=== PATIENT | male | born 1970 | race Two or more races ===

== ENCOUNTER 2025-04-29 21:54 | Inpatient (IN) | payer MEDICAID, OTHER ==
[~2025-04-29] VITALS: Ht 165.1 cm; Wt 63.0 kg
--- NOTE | 2025-04-29 22:04 | ECG ---
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
[2025-04-29 22:28] VITALS: PULSE 80; RESP 24; O2SAT 96
[2025-04-29 23:10] LABS: Hematocrit 43.7 % (41.0-53.0); Hemoglobin 15.2 g/dL (13.5-17.5); Mean Corpuscular Hemoglobin 31.6 pg (28.0-32.0); Mean Corpuscular Volume 90.8 fL (80.0-100.0)
--- NOTE | 2025-04-29 23:10 | ED.PDOC ---
HPI Comments 55-year-old male who came to ER for shortness of breath. Patient denies any medical problems. States earlier today he started having chest pains and shortness of breath after having dinner. Thought he was having an allergic reaction so he self-medicated Benadryl which offered no relief. Patient was getting breathing treatments by paramedics while on the way to the emergency room. Saturating 96% on room air Chief Complaint: Shortness of Breath Time Seen by MD: 23:14 Reviewed Notes: Nurses Notes Allergies: Coded Allergies: NO KNOWN ALLERGIES (Unverified , 04/29/25) Information Source: Patient Mode of Arrival: EMS Severity: Moderate Past Medical History PAST MEDICAL HISTORY: Denies Surgical History: Denies all surgeries Family History Family History: Reviewed,noncontributory to illness Social History Smoker: Non-Smoker Alcohol: Denies ETOH Use Drugs: Denies Drug Use Lives In: Home Constitutional: denies: chills, diaphoresis, fatigue, fever, malaise, sweats, weakness, others EENTM: denies: blurred vision, double vision, ear bleeding, ear discharge, ear drainage, ear pain, ear ringing, eye pain, eye redness, hearing loss, mouth pain, mouth swelling, nasal discharge, nose bleeding, nose congestion, nose pain, photophobia, tearing, throat pain, throat swelling, voice changes, others Respiratory: reports: SOB at rest, shortness of breath; denies: cough, hemoptysis, orthopnea, SOB with excertion, stridor, wheezing, others Cardiovascular: reports: chest pain; denies: dizzy spells, diaphoresis, Dyspnea on exertion, edema, irregular heart beat, left arm pain, lightheadedness, palpitations, PND, syncope, others Gastrointestinal: denies: abdomen distended, abdominal pain, blood streaked bowels, constipated, diarrhea, dysphagia, difficulty swallowing, hematemesis, melena, nausea, poor appetite, poor fluid intake, rectal bleeding, rectal pain, vomiting, others Genitourinary: denies: burning, dysuria, flank pain, frequency, hematuria, incontinence, penile discharge, penile sore, pain, testicle pain, testicle swelling, urgency, others Neurological: denies: dizziness, fainting, headache, left sided numbness, left sided weakness, numbness, paresthesia, pre-existing deficit, right sided nu mbness, right sided weakness, seizure, speech problems, tingling, tremors, weakness, others Musculoskeletal: denies: back pain, gout, joint pain, joint swelling, muscle pain, muscle stiffness, neck pain, others Integumetry: denies: bruises, change in color, change in hair/nails, dryness, laceration, lesions, lumps, rash, wounds, others Allergic/Immunocompromised: denies: Difficulty Healing, Frequent Infections, Hives, Itching, others Hematologic/Lymphatic: denies: anemia, blood clots, easy bleeding, easy bruising, swollen glands, others Endocrine: denies: excessive hunger, excessive sweating, excessive thirst, excessive urination, flushing, intolerance to cold, intolerance to heat, unexplained weight gain, unexplained weight loss, others Psychiatric: denies: anxiety, bipolar disorder, depression, hopeless, panic disorder, schizophrenia, sleepless, suicidal, others Physical Exam General Appearance: No Apparent Distress, Normal HEENT: Normal ENT Inspection, Pharynx Normal, TMs Normal Neck: Full Range of Motion, Non-Tender, Normal, Normal Inspection Respiratory: Chest Non-Tender, Lungs Clear, No Accessory Muscle Use, No Respiratory Distress, Normal Breath Sounds Cardiovascular: No Edema, No JVD, No Murmur, No Gallop, Normal Peripheral Pulses, Regular Rate/Rhythm Breast Exam: Deferred Gastrointestinal: No Organomegaly, Non Tender, No Pulsatile Mass, Normal Bowel Sounds, Soft Genitalia: Deferred Pelvic: Deferred Rectal: Deferred Extremities: No calf tenderness, Normal capillary refill, Normal inspection, Normal range of motion, Non-tender, No pedal edema Musculoskeletal : Apperance: Normal Neurologic: Alert, artist woodblock II-XII nml as Tested, No Motor Deficits, Normal Affect, Normal Mood, No Sensory Deficits Cerebellar Function: Normal Reflexes: Normal Skin: Dry, Normal Color, Warm Lymphatic: No Adenopathy EKG EKG : Pulse Rate (adult): 82 Cardiac Rhythm: NSR Was a procedure done? Was a procedure done?: No CP Differential Dx Differential Diagnosis: Angina, Anxiety / Panic Attack Differential Diagnosis: Angina, Chest Wall Pain, Costochondritis, Esophageal reflux/spasm, Gastritis, Myocardial Infarction X-Ray, Labs, Meds, VS Vital Signs Date Time Temp Pulse Resp B/P (MAP) Pulse Ox O2 Delivery O2 Flow Rate FiO2 04/30/25 01:50 78 20 101/55 (70) 95 04/30/25 00:00 80 20 102/55 (71) 96 04/29/25 23:37 16 95 Nasal Cannula* 2 28 04/29/25 23:15 82 04/29/25 22:28 80 24 96 Nasal Cannula* 2 28 04/29/25 22:26 97.9 80 24 108/63 (78) 96 97.9 04/29/25 22:04 98.9 78 24 111/65 96 98.9 04/29/25 21:57 82 Lab Test 04/29/25 23:12 04/29/25 23:07 04/29/25 22:00 Range/Units Blood Gas Specimen Type Venous Blood Gas Sample Site Vbg - n/a Blood Gas Patient Temperature 37.0 Arterial Blood Date Drawn [id number] Declan Test N/a Venous Blood pH 7.395 7.320-7.430 Venous Blood pCO2 at Patient Temp 34.8 L 38.0-54.0 mmHg Venous Blood pO2 at Patient Temp 65.8 H 23.0-48.0 mmHg Venous Blood HCO3 20.8 L 22.0-29.0 mmol/L Venous Blood Base Excess -3.3 L -2.0-3.0 mmol/L Blood Gas Liter Flow 2.00 Blood Gas Modality Nasal cannula FiO2 % 28.0 Troponin I High Sensitivity < 3 L < 3 L </=54 ng/L White Blood Count 10.1 4.4-10.8 10^3/uL Red Blood Count 4.81 4.5-5.90 10^6/uL Hemoglobin 15.2 13.5-17.5 g/dL Hematocrit 43.7 41.0-53.0 % Mean Corpuscular Volume 90.8 80.0-100.0 fL Mean Corpuscular Hemoglobin 31.6 28.0-32.0 pg Mean Corpuscular Hemoglobin Concent 34.8 32.0-36.0 g/dL Red Cell Distribution Width 13.7 11.8-14.3 % Platelet Count 317 140-450 10^3/uL Mean Platelet Volume 8.8 6.9-10.8 fL Neutrophils (%) (Auto) 37.0-80.0 % Lymphocytes (%) (Auto) 10.0-50.0 % Monocytes (%) (Auto) 0.0-12.0 % Basophils (%) (Auto) 0.0-2.0 % Neutrophils # (Auto) 1.6-8.6 10 ^3/uL Lymphocytes # (Auto) 0.4-5.4 10 ^3/uL Monocytes # (Auto) 0-1.3 10 ^3/uL Differential Total Cells Counted Pending Neutrophils % (Manual) Pending Band Neutrophils % (Manual) Pending Lymphocytes % (Manual) Pending Monocytes % (Manual) Pending Eosinophils % (Manual) Pending Basophils % (Manual) Pending Metamyelocytes % (manual) Pending Myelocytes % (Manual) Pending Promyelocytes % (Manual) Pending Blast Cells % (Manual) Pending Reactive Lymphocytes Pending Platelet Estimate Pending Prothrombin Time 9.8 9.3-11.8 sec Prothrombin Time INR 0.92 0.9-1.15 Activated Partial Thromboplast Time 26.4 24.5-34.5 SEC Sodium Level 143 136-145 mmol/L Potassium Level 3.5 3.5-5.1 mmol/L Chloride Level 109 H 98-107 mmol/L Carbon Dioxide Level 21 20-31 mmol/L Anion Gap 13 5-15 Blood Urea Nitrogen 19 9-23 mg/dL Creatinine 0.83 0.700-1.30 mg/dL Glomerular Filtration Rate Calc 103 >90 mL/min BUN/Creatinine Ratio 22.9 H 10.0-20.0 Serum Glucose 86 74-106 mg/dL Calcium Level 9.2 8.7-10.4 mg/dL Total Bilirubin 0.2 0.2-1.0 mg/dL Aspartate Amino Transferase (AST) 24 13-40 U/L Alanine Aminotransferase (ALT) 27 7-40 U/L Alkaline Phosphatase 70 46-116 U/L B-Type Natriuretic Peptide 19.04 0-100 pg/mL Total Protein 6.7 5.7-8.2 g/dL Albumin 3.9 3.2-4.8 g/dL Current Medications Medications (Trade) Dose Ordered Sig/Tosha Route Start Time Stop Time Status Last Admin Prednisone 40 mg ONCE ONCE PO 04/29/25 23:00 04/29/25 23:02 DC 04/29/25 23:22 Albuterol (Ventolin Medneb) 5 mg ONCE ONCE NEB 04/29/25 23:00 04/29/25 23:02 DC 04/29/25 23:37 Ipratropium [place] (Atrovent Medneb) 0.5 mg ONCE ONCE NEB 04/29/25 23:00 04/29/25 23:02 DC 04/29/25 23:37 Time of 1ST Reevaluation: 23:12 Reevaluation 1ST: Unchanged Patient Education/Counseling: Diagnosis, Treatment Family Education/Counseling: No Family Present SEPSIS Sepsis Screen Date sepsis recognized/suspect: Apr 29, 2025 Time Sepsis recognized/suspect: 2232 Recent Procedure: No On Antibiotic Therapy: No Respiratory Rate >20: Yes Heart Rate >90: No Temp<36 C (96.8 F) or >38.3 C: No SBP <90 or MAP <65 mmHG: No New Acute Mental Status Change: No Is the patient on CPAP, BIPAP,: No Physician Orders Complete Blood Count (04/29/25 22:59) Chest Portable (04/29/25 22:59) Venous Blood Gas (04/29/25 22:59) Manual Differential (04/29/25 22:00) Vital Signs Date Time Temp Pulse Resp B/P (MAP) Pulse Ox O2 Delivery O2 Flow Rate FiO2 04/30/25 01:50 78 20 101/55 (70) 95 04/30/25 00:00 80 20 102/55 (71) 96 04/29/25 23:37 16 95 Nasal Cannula* 2 28 04/29/25 23:15 82 04/29/25 22:28 80 24 96 Nasal Cannula* 2 28 04/29/25 22:26 97.9 80 24 108/63 (78) 96 97.9 04/29/25 22:04 98.9 78 24 111/65 96 98.9 04/29/25 21:57 82 Laboratory Tests Test 04/29/25 22:00 White Blood Count 10.1 10^3/uL (4.4-10.8) Medications Medications Dose Ordered Sig/Tosha Route Start Time Stop Time Status Last Admin Dose Admin Albuterol 5 mg ONCE ONCE NEB 04/29/25 23:00 04/29/25 23:02 DC 04/29/25 23:37 Ipratropium [place] 0.5 mg ONCE ONCE NEB 04/29/25 23:00 04/29/25 23:02 DC 04/29/25 23:37 Prednisone 40 mg ONCE ONCE PO 04/29/25 23:00 04/29/25 23:02 DC 04/29/25 23:22 Departure 1 Departure Time of Disposition: 02:20 Impression: Primary Impression: COPD exacerbation Additional Impression: Respiratory failure with hypoxia Disposition: ADMITTED INPATIENT Admit to: Med Surg Condition: Guarded Discharged With: Self Comments 55 year old male with severe SOB, hypoxia. CXR and cardiac labs ok. given breathing treatments and still has SOB on reeval. will need admit for supportive care and further workup Critical Care Note Critical Care Time?: No Stability Stability form required: No Heart Score Heart Score: Heart Score Response (Comments) Value History Slightly Suspicious 0 EKG Normal 0 Age <45 0 Risk Factors No known risk factors 0 Troponin Normal limit 0 Total 0 I personally scribed for AYANA TILLEY MD ([email or web address]) on 04/29/25 at 23:10. Electronically submitted by Sebastián Torrez ([employer]). I personally scribed for AYANA TILLEY MD ([email or web address]) on 04/29/25 at 23:15. Electronically submitted by Sebastián Torrez ([email or web address]). AYANA TILLEY MD Apr 29, 2025 23:10
[2025-04-29] MEDS: predniSONE 20 MG TAB PO ONE (23:22)
[2025-04-29 23:25] LABS: Alanine Aminotransferase 27 U/L (7-40); Albumin 3.9 g/dL (3.2-4.8); Alkaline Phosphatase 70 U/L (46-116); Anion Gap 13 (5-15); BUN/Creatinine Ratio 22.9 (10.0-20.0); Blood Urea Nitrogen 19 mg/dL (9-23); Calcium 9.2 mg/dL (8.7-10.4); Carbon Dioxide 21 mmol/L (20-31); Glucose 86 mg/dL (74-106); Potassium 3.5 mmol/L (3.5-5.1); Sodium 143 mmol/L (136-145); Total Protein 6.7 g/dL (5.7-8.2)
[2025-04-29 23:28] LABS: Bilirubin, Total 0.2 mg/dL (0.2-1.0); Chloride 109 mmol/L (98-107)
[2025-04-29 23:35] LABS: INR 0.92 (0.9-1.15); Partial Thromboplastin Time 26.4 SEC (24.5-34.5); Prothrombin Time 9.8 sec (9.3-11.8)
[2025-04-29] MEDS: IPRATROPIUM BROM 0.5 MG/2.5ML INH SOL NEB ONE (23:37)
[2025-04-29] MEDS: ALBUTEROL SULF 2.5 MG/0.5ML(0.5%) NEB SOLN NEB ONE (23:37)
[2025-04-30] VITALS (7 sets, daily range): BP systolic 108–123; BP diastolic 45–72; PULSE 64–77; RESP 16–18; TEMP 98.3–98.8; O2SAT 95–98
--- NOTE | 2025-04-30 00:33 | DVH ---
CHEST RADIOGRAPH Indication: SOB Technique: Single frontal view of the chest was obtained COMPARISON: None FINDINGS: Lungs and pleural spaces are clear. Cardiac silhouette and vikki are within normal limits. Bones and soft tissues demonstrate no significant abnormality. IMPRESSION: No acute disease.
[2025-04-30 02:19] LABS: Total Cells Counted 100.0 (100)
[2025-04-30] MEDS ORDERED: ACETAMINOPHEN 325 MG TAB PO PRN (02:30)
[2025-04-30] MEDS ORDERED: DOCUSATE SOD 100 MG CAP PO PRN (02:30)
[2025-04-30] MEDS ORDERED: ONDANSETRON HCL 4 MG/2 ML VIAL IV PRN (02:30)
[2025-04-30] MEDS ORDERED: NITROGLYCERIN 0.4 MG SL TAB SL PRN (02:45)
[2025-04-30] MEDS ORDERED: MORPHINE SULFATE INJ 2 MG/ml SYRG IV PRN (02:45)
--- NOTE | 2025-04-30 02:47 | DVHHP2 ---
History of Present Illness Reason for Visit: Acute respiratory distress History of Present Illness The patient is a 55-year-old male who denies past medical history presented to [facility] ED with complaint of shortness of breaths. Patient reports that he has been experiencing difficulty breathing, lethargic, increased work of breathing, associated with generalized weakness, chest pain, getting worse that prompted this visit. Patient was seen and evaluated in the ED, laboratory data shows WBC 10.1, platelets 317, sodium 143, potassium 3.5, BUN 19, creatinine 0.83, GFR 103, glucose 86, calcium 9.2, troponin < 3, BNP 19.04, chest x-ray show no acute disease. Patient was given breathing treatment, please see medication orders section in the computer. On my assessment, at bedside, patient denied chest pain, no headache, dizziness, diaphoresis, currently on oxygen, no diarrhea, nausea, vomiting, fever, no chills. Patient was admitted for further evaluation and medical management. Past Medical History Denies past medical history Past Surgical History Denies all surgeries Family History Reviewed, noncontributory to the management of this case. Past Social History The patient lives at home, denies smoking, alcohol or illicit drugs abuse. Review of Systems Constitutional: Yes: Weakness, Other (Lethargic); No: Fever, Chills, Sweats, Malaise Eyes: No: Pain, Vision change, Conjunctivae inflammation, Eyelid inflammation, Other, Redness ENT: No: Ear pain, Ear discharge, Nose pain, Nose discharge, Nose congestion, Mouth pain, Mouth swelling, Throat pain, Throat swelling, Other Respiratory: Shortness of breath, Other (SOB at rest); No: Cough, Dry, SOB with excertion, Wheezing, Hemoptysis, Pleuritic Pain, Sputum, Wheezing Cardiovascular: Chest Pain; No: Palpitations, Orthopnea, Paroxysmal Noc. Dyspnea, Edema, Lt Headedness, Other Gastrointestinal: No: Nausea, Vomiting, Abdominal Pain, Diarrhea, Constipation, Melena, Hematochezia, Other Genitourinary: No Dysuria, No Frequency, No Incontinence, No Hematuria, No Retention, No Other Musculoskeletal: No: other, neck pain, shoulder pain, arm pain, back pain, hand pain, leg pain, foot pain Skin: No: Rash, Lesions, Jaundice, Bruising, Other Neurological: No: Weakness, Numbness, Incoordination, Change in speech, Confusion, Seizures, Other Allergies: Coded Allergies: NO KNOWN ALLERGIES (Unverified , 04/29/25) Medications Current Medications Medications Dose Ordered Sig/Tosha Route Start Time Stop Time Status Last Admin Dose Admin Methylprednisolone Sodium Succinate 40 mg BID IV 04/30/25 10:00 Famotidine 20 mg DAILY IV 04/30/25 10:00 Sodium Chloride 10 ml Q8HR IV 04/30/25 06:00 Acetaminophen/ Hydrocodone Bitart 1 tab Q4HP PRN PO 04/30/25 02:30 Ondansetron HCl 4 mg Q4HP PRN IV 04/30/25 02:30 Docusate Sodium 100 mg BIDPRN PRN PO 04/30/25 02:30 Acetaminophen 650 mg Q6HP PRN PO 04/30/25 02:30 Exam Vital Signs Vital Signs Date Time Temp Pulse Resp B/P (MAP) Pulse Ox O2 Delivery O2 Flow Rate FiO2 04/30/25 01:50 78 20 101/55 (70) 95 04/29/25 23:37 Nasal Cannula* 2 28 04/29/25 22:26 97.9 97.9 General Appearance: Alert, Oriented X3, Cooperative, No acute distress HEENT: Atraumatic, PERRLA, EOMI, Mucous membr. moist/pink Respiratory: Normal air movement Cardiovascular: Regular rate, Normal S1, Normal S2, No murmurs Abdominal: Normal bowel sounds, Soft, No tenderness, No hepatospenomegaly, No masses Extremities: No clubbing, No cyanosis, No edema, Normal pulses, No tenderness/swelling Skin: No rashes, No significant lesion Neuro: Normal speech, Normal tone, Sensation intact, Cranial nerves 3-12 NL, Reflexes 2+, Other (Generalized weakness) Psych/Mental Status: Mental status NL, Mood NL Labs/Xrays Labs Test 04/29/25 23:12 04/29/25 23:07 04/29/25 22:00 Range/Units Blood Gas Specimen Type Venous Blood Gas Sample Site Vbg - n/a Blood Gas Patient Temperature 37.0 Arterial Blood Date Drawn [id number] Declan Test N/a Venous Blood pH 7.395 7.320-7.430 Venous Blood pCO2 at Patient Temp 34.8 L 38.0-54.0 mmHg Venous Blood pO2 at Patient Temp 65.8 H 23.0-48.0 mmHg Venous Blood HCO3 20.8 L 22.0-29.0 mmol/L Venous Blood Base Excess -3.3 L -2.0-3.0 mmol/L Blood Gas Liter Flow 2.00 Blood Gas Modality Nasal cannula FiO2 % 28.0 Troponin I High Sensitivity < 3 L </=54 ng/L White Blood Count 10.1 4.4-10.8 10^3/uL Red Blood Count 4.81 4.5-5.90 10^6/uL Hemoglobin 15.2 13.5-17.5 g/dL Hematocrit 43.7 41.0-53.0 % Mean Corpuscular Volume 90.8 80.0-100.0 fL Mean Corpuscular Hemoglobin 31.6 28.0-32.0 pg Mean Corpuscular Hemoglobin Concent 34.8 32.0-36.0 g/dL Red Cell Distribution Width 13.7 11.8-14.3 % Platelet Count 317 140-450 10^3/uL Mean Platelet Volume 8.8 6.9-10.8 fL Neutrophils (%) (Auto) 37.0-80.0 % Lymphocytes (%) (Auto) 10.0-50.0 % Monocytes (%) (Auto) 0.0-12.0 % Basophils (%) (Auto) 0.0-2.0 % Neutrophils # (Auto) 1.6-8.6 10 ^3/uL Lymphocytes # (Auto) 0.4-5.4 10 ^3/uL Monocytes # (Auto) 0-1.3 10 ^3/uL Differential Total Cells Counted 100.0 100 Neutrophils % (Manual) 40 37.0-80.0 Band Neutrophils % (Manual) 0 Lymphocytes % (Manual) 57 H 10.0-50.0 Monocytes % (Manual) 3 0-12 Eosinophils % (Manual) 0 0-7 Basophils % (Manual) 0 0.0-2.0 Metamyelocytes % (manual) 0 Myelocytes % (Manual) 0 Promyelocytes % (Manual) 0 Blast Cells % (Manual) 0 Reactive Lymphocytes 0 Platelet Estimate Adequate Prothrombin Time 9.8 9.3-11.8 sec Prothrombin Time INR 0.92 0.9-1.15 Activated Partial Thromboplast Time 26.4 24.5-34.5 SEC Sodium Level 143 136-145 mmol/L Potassium Level 3.5 3.5-5.1 mmol/L Chloride Level 109 H 98-107 mmol/L Carbon Dioxide Level 21 20-31 mmol/L Anion Gap 13 5-15 Blood Urea Nitrogen 19 9-23 mg/dL Creatinine 0.83 0.700-1.30 mg/dL Glomerular Filtration Rate Calc 103 >90 mL/min BUN/Creatinine Ratio 22.9 H 10.0-20.0 Serum Glucose 86 74-106 mg/dL Calcium Level 9.2 8.7-10.4 mg/dL Total Bilirubin 0.2 0.2-1.0 mg/dL Aspartate Amino Transferase (AST) 24 13-40 U/L Alanine Aminotransferase (ALT) 27 7-40 U/L Alkaline Phosphatase 70 46-116 U/L B-Type Natriuretic Peptide 19.04 0-100 pg/mL Total Protein 6.7 5.7-8.2 g/dL Albumin 3.9 3.2-4.8 g/dL PATIENT: JOSE ZAMUDIO ACCT: [id number] UNIT: [id number] : 1970 LOC: ER ROOM / BED: / AGE / SEX: 55 / M ADM STATUS: REG ER SERVICE 58 ORDERING PHYSICIAN: AYANA TILLEY MD PROCEDURE(s): CXRP - CHEST PORTABLE REASON: SOB ORDER NUMBER(s): [id number], ACCESSION NUMBER(s): [id number] CHEST RADIOGRAPH Indication: SOB Technique: Single frontal view of the chest was obtained COMPARISON: None FINDINGS: Lungs and pleural spaces are clear. Cardiac silhouette and vikki are within normal limits. Bones and soft tissues demonstrate no significant abnormality. IMPRESSION: No acute disease. SEPSIS Sepsis Screen Date sepsis recognized/suspect: Apr 29, 2025 Time Sepsis recognized/suspect: 22:33 Recent Procedure: No On Antibiotic Therapy: No Respiratory Rate >20: Yes Heart Rate >90: No Temp<36 C (96.8 F) or >38.3 C: No SBP <90 or MAP <65 mmHG: No New Acute Mental Status Change: No Is the patient on CPAP, BIPAP,: No Physician Orders Chest Portable (04/29/25 22:59) Venous Blood Gas (04/29/25 22:59) Complete Blood Count (04/30/25 04:00) Comprehensive Metabolic Panel (04/30/25 04:00) Methylprednisolone Sod Succ (Solu Medrol (04/30/25 10:00) Famotidine Injection (Pepcid Injection) (04/30/25 10:00) Allergies (04/30/25 02:27) Code Status (04/30/25 02:27) Sodium Chloride Lock (Saline Lock Ns) (04/30/25 06:00) Oxygen Per Hour (04/30/25 02:27) Hydrocodone-Acet 5/325mg Tab ([place] 5/32 (04/30/25 02:30) Ondansetron Hcl (Zofran) (04/30/25 02:30) Docusate Sodium Capsule (Colace Capsule) (04/30/25 02:30) Complete Blood Count (05/01/25 04:00) Comprehensive Metabolic Panel (05/01/25 04:00) Cardiac Diet-2gna,Lofat,Lochol (04/30/25 Breakfast) Condition: Serious (04/30/25 02:27) Acetaminophen Tablet (Tylenol Tablet) (04/30/25 02:30) Bedrest With Bathroom Privileg (04/30/25 02:27) Sequential Compression Device (04/30/25 ) Admit (04/30/25 02:45) Nitroglycerin Sublingual (Ntrostat Subli (04/30/25 02:45) Morphine Sulfate Injection (04/30/25 02:45) Stat Ekg For Chest Pain (04/30/25 02:45) Notify Md Of Changes From Base (04/30/25 02:45) Sales Representative Jewelry For 24 Hours (04/30/25 02:45) Emergency Dysrhythmia Protocol (04/30/25 02:45) Rhythm Strips Once Every Shift (04/30/25 02:45) Oxygen By Nasal Cannula (04/30/25 02:45) Vital Signs Date Time Temp Pulse Resp B/P (MAP) Pulse Ox O2 Delivery O2 Flow Rate FiO2 04/30/25 01:50 78 20 101/55 (70) 95 04/30/25 00:00 80 20 102/55 (71) 96 04/29/25 23:37 16 95 Nasal Cannula* 2 28 04/29/25 23:15 82 04/29/25 22:28 80 24 96 Nasal Cannula* 2 28 04/29/25 22:26 97.9 80 24 108/63 (78) 96 97.9 04/29/25 22:04 98.9 78 24 111/65 96 98.9 04/29/25 21:57 82 Laboratory Tests Test 04/29/25 22:00 White Blood Count 10.1 10^3/uL (4.4-10.8) Medications Medications Dose Ordered Sig/Tosha Route Start Time Stop Time Status Last Admin Dose Admin Albuterol 5 mg ONCE ONCE NEB 04/29/25 23:00 04/29/25 23:02 DC 04/29/25 23:37 5 MG Ipratropium [place] 0.5 mg ONCE ONCE NEB 04/29/25 23:00 04/29/25 23:02 DC 04/29/25 23:37 0.5 MG Prednisone 40 mg ONCE ONCE PO 04/29/25 23:00 04/29/25 23:02 DC 04/29/25 23:22 40 MG Assessment/Plan Assessment/Plan Acute respiratory distress COPD with acute exacerbation Acute respiratory failure with hypoxia Generalized weakness Plan 1. Admit to telemetry unit 2. Breathing treatment 3. Pain control management 4. Management of fluids and electrolytes 5. Consultation for hospitalist 6. Diagnostic tests chest x-ray 7. DVT prophylaxis on SCDs 8. Repeat labs CBC, CMP in a.m. 9. Continue with current medical management 10. Treatment plan discussed with patient and RN. Patient verbalized understanding. Plan discussed with: Patient, Spouse ( at bedside), Other (RN) My Orders Orders - GONZALO JAIMES DNP Procedure Category Date Status Time Complete Blood Count LAB 04/30/25 Logged 04:00 Comprehensive LAB 04/30/25 Logged Metabolic Panel 04:00 Methylprednisolone PHA 04/30/25 In Process Sod Succ (Solu Medrol 10:00 Famotidine Injection PHA 04/30/25 In Process (Pepcid Injection) 10:00 Allergies DWAIN 04/30/25 In Process 02:27 Code Status CODE 04/30/25 Transmitted 02:27 Sodium Chloride Lock PHA 04/30/25 In Process (Saline Lock Ns) 06:00 Oxygen Per Hour RT 04/30/25 Transmitted 02:27 Hydrocodone-Acet PHA 04/30/25 In Process 5/325mg Tab ([place] 02:30 Ondansetron Hcl PHA 04/30/25 In Process (Zofran) 02:30 Docusate Sodium [facility] 04/30/25 In Process Capsule (Colace 02:30 Complete Blood Count LAB 05/01/25 Verified 04:00 Comprehensive LAB 05/01/25 Verified Metabolic Panel 04:00 Cardiac DIET 04/30/25 Transmitted Diet-2gna,Lofat,Lochol Breakfast Condition: Serious [facility] 04/30/25 In Process 02:27 Acetaminophen Tablet [facility] 04/30/25 In Process (Tylenol Tablet) 02:30 Bedrest With Bathroom [facility] 04/30/25 In Process Privileg 02:27 Sequential [facility] 04/30/25 In Process Compression Device Admit ADMIT 04/30/25 Verified 02:45 Nitroglycerin [facility] 04/30/25 Verified Sublingual (Ntrostat 02:45 Morphine Sulfate [facility] 04/30/25 Verified Injection 02:45 Stat Ekg For Chest [facility] 04/30/25 Verified Pain 02:45 Notify Md Of Changes [facility] 04/30/25 Verified From Base 02:45 Sales Representative Jewelry For [facility] 04/30/25 Verified 24 Hours 02:45 Emergency Dysrhythmia [facility] 04/30/25 Verified Protocol 02:45 Rhythm Strips Once [facility] 04/30/25 Verified Every Shift 02:45 Oxygen By Nasal 04/30/25 Verified Cannula 02:45 Problem List: (1) Acute respiratory distress (2) COPD with acute exacerbation (3) Respiratory failure with hypoxia (4) Generalized weakness Date of Service: Apr 30, 2025 Billing Provider: GONZALO JAIMES DNP Common Visit Codes: [id number] INP/OBS CARE (HIGH) GONZALO JAIMES DNP Apr 30, 2025 02:47
[2025-04-30] MEDS: SODIUM CHLOR 0.9% PF (SALINE LOCK) 10ML VIAL/SYR IV SCH (06:14)
[2025-04-30] MEDS: methylPREDNISolone SOD SUCC 40 MG/ML VL IV SCH (09:41)
[2025-04-30] MEDS: FAMOTIDINE (10MG/ML) 2ML VL IV SCH (09:41)
[2025-04-30 10:00] LABS: Hematocrit 45.9 % (41.0-53.0); Hemoglobin 15.7 g/dL (13.5-17.5); Mean Corpuscular Hemoglobin 31.4 pg (28.0-32.0); Mean Corpuscular Volume 91.8 fL (80.0-100.0); Nucleated Red Blood Cells % 0.1 %
[2025-04-30 10:13] LABS: Alanine Aminotransferase 27 U/L (7-40); Albumin 4.1 g/dL (3.2-4.8); Alkaline Phosphatase 67 U/L (46-116); Anion Gap 9 (5-15); BUN/Creatinine Ratio 21.6 (10.0-20.0); Bilirubin, Total 0.3 mg/dL (0.2-1.0); Blood Urea Nitrogen 16 mg/dL (9-23); Calcium 9.2 mg/dL (8.7-10.4); Carbon Dioxide 22 mmol/L (20-31); Potassium 4.0 mmol/L (3.5-5.1); Sodium 142 mmol/L (136-145); Total Protein 7.0 g/dL (5.7-8.2)
[2025-04-30 10:17] LABS: Chloride 111 mmol/L (98-107); Glucose 110 mg/dL (74-106)
[2025-04-30 16:50] LABS: COVID19 ANTIGEN SOFIA FIA NEGATIVE (NEGATIVE)
--- NOTE | 2025-04-30 18:53 | DVHPNRES ---
Progress Note Date Seen: Apr 30, 2025 Resident Creating Document: CARO BROWER RESIDENT Medical Necessity Reason Pt with a Central, PICC or Fol: No Subjective Review of Systems Berlin Juarez 55-year-old male with no significant past medical history who presented to the ED with the complaint of shortness of breath. The patient mentioned he started having shortness of breath yesterday which kept getting progressively worse, when he had significant difficulty breathing and was gasping for air. She also experienced tightness in the chest and generalized weakness along with it. The patient mentions he has been having increased shortness of breath on lying down and has to sometimes sit up from lying down position to get some air. On evaluation today, patient mentions he is having sharp pain radiating from the back to the front of the chest, rated as 8/10 in intensity, exacerbated with exertion. He denies any recent fever, chills or sick contacts. Past medical history: Denies Past surgical history: Denies Social & Personal history: Lives at home with family Smokin pack-year smoking history Alcohol: Occasional alcohol consumption Drugs: Denies Allergies: No known allergies Patient seen and examined at bedside. Patient is alert and oriented to time, place person and responding to all questions. Eyes: No Pain, No Vision change, No Conjunctivae inflammation, No Eyelid inflammation, No Redness ENT: No Ear pain, No Ear discharge, No Nose pain, No Nose discharge, No Nose congestion, No Mouth pain, No Mouth swelling, No Throat pain, No Throat swelling Cardiovascular: Chest Pain, No Palpitations, No Orthopnea, No Paroxysmal No Dyspnea, No Edema, No Lt Headedness Respiratory: No Cough, No Dry, No Shortness of breath, No SOB with exertion, No Wheezing, No Hemoptysis, No Pleuritic Pain, No Sputum Gastrointestinal: No Nausea, No Vomiting, No Abdominal Pain, No Diarrhea, No Constipation, No Melena, No Hematochezia Genitourinary: No Dysuria, No Frequency, No Incontinence, No Hematuria, No Retention Objective vital signs Vital Sign Date Time Temp Pulse Resp B/P (MAP) Pulse Ox O2 Delivery O2 Flow Rate FiO2 04/30/25 17:19 98.3 69 16 118/71 (87) 97 98.3 04/30/25 08:00 Nasal Cannula* 2 28 Total Intake and Output 04/29/25 04/29/2504/30/25 15:00 23:00 07:00 Intake Total 220 ml Output Total 520 ml Balance -300 ml medications Current Medications Medications Dose Ordered Sig/Tosha Route Start Time Stop Time Status Last Admin Dose Admin Methylprednisolone Sodium Succinate 40 mg BID IV 04/30/25 10:00 04/30/25 09:41 40 MG Famotidine 20 mg DAILY IV 04/30/25 10:00 04/30/25 09:41 20 MG Sodium Chloride 10 ml Q8HR IV 04/30/25 06:00 04/30/25 14:00 10 ML Acetaminophen/ Hydrocodone Bitart 1 tab Q4HP PRN PO 04/30/25 02:30 Ondansetron HCl 4 mg Q4HP PRN IV 04/30/25 02:30 Docusate Sodium 100 mg BIDPRN PRN PO 04/30/25 02:30 Acetaminophen 650 mg Q6HP PRN PO 04/30/25 02:30 Nitroglycerin 0.4 mg Q5MINP PRN SL 04/30/25 02:45 Morphine Sulfate 2 mg Q30M PRN IV 04/30/25 02:45 Examination General Appearance: Cooperative. Well developed. Well nourished. NAD Head Exam: Normal inspection Neck Exam: Normal inspection. Non-tender. Normal alignment Pulmonary/Respiratory: Chest non-tender. Clear bilateral breath sounds, no crackles, no wheezing. Cardiovascular/Chest: Regular rate and rhythm. No murmurs. No JVD. Peripheral Pulses: 2+ Radial (R). 2+ Radial (L). 2+ Pedal (R). 2+ Pedal (L) Abdominal Exam: Normal bowel sounds. Soft. normal abdomen, no visible veins, Nontender. No hepatospenomegaly. No masses Ankle Exam: Negative ankle edema Lower extremities: Negative lower extremity edema Neuro/Mental Status: A&O x4. Coherent. Thoughts/Psych: Normal thought pattern. Appropriate mood and affect. Good judgement and insight Skin Exam: Normal inspection. Normal color. Warm. Dry laboratory and microbiology Laboratory Tests 04/30/25 09:39 Test 04/30/25 09:39 Range/Units Serum Glucose 110 H 74-106 mg/dL Labs and/or images reviewed: Labs reviewed by me, Image(s) reviewed by me Problem List/Assessment/Plan Problem List/Assessment/Plan # Acute respiratory failure, rule out COPD, on 2 L oxygen # acute chest pain,rule out PE # rule out aortic dissection # acute chest pain, rule out ACS # ruled out COPD exacerbation # rule out GERD - tropes x3 negative - BNP 19.04 - D-dimer 0.38 - EKG acute changes - COVID and influenza negative - echo ordered, pending - chest x-ray showed no acute changes - MRSA screen ordered, pending PUD prophylaxis: Famotidine 20 mg daily IV DVT prophylaxis: Goals of care: Full code, discussed for >23 minutes Plan discussed with patient Plan discussed with Dr. Torres Plan discussed with: Patient, Spouse, Son My Orders My Orders Orders - CARO BROWER Procedure Category Date Status Time Electrocardigram EKG 04/30/25 Logged 10:31 Date of Service: Apr 30, 2025 Billing Provider: CHRIS TORRES MD Common Visit Codes: [id number] INP/OBS CARE(HIGH) CARO BROWER RESIDENT Apr 30, 2025 18:53
[2025-04-30 19:26] LABS: Urine Protein, UAD Negative (Negative)
[2025-04-30 19:40] LABS: Amphetamine Screen, Urine Neg (NEGATIVE); Barbiturate Scree,Urine Neg (NEGATIVE); Benzodiazephine Screen, Urine Neg (NEGATIVE); Cannabinoid Screen, Urine Neg (NEGATIVE); Cocaine Screen, Urine Neg (NEGATIVE); Opiate Scree,Urine Neg (NEGATIVE); Phencyclidine Screen, Urine Neg (NEGATIVE)
[2025-04-30] MEDS: HYDROcodone-ACET 5/325MG TAB PO PRN (20:16)
[2025-04-30] MEDS: NICOTINE 21MG/24 HR TOPICAL PATCH TD SCH (20:17)
[2025-05-01] VITALS (8 sets, daily range): BP systolic 103–117; BP diastolic 61–84; PULSE 52–103; RESP 7–98; TEMP 96.9–97.9; O2SAT 94–98
--- NOTE | 2025-05-01 05:20 | DVH ---
CHEST RADIOGRAPH Indication: shortness of breath Technique: Single frontal view of the chest was obtained COMPARISON: XY CHEST PORTABLE on DOS: 04/30/25 FINDINGS: Lines and Tubes: None Lungs: Clear Pleura: No effusion. No pneumothorax. Cardiomediastinal contours: Unremarkable Bones: Unremarkable IMPRESSION: 1. No acute disease.
[2025-05-01 06:45] LABS: Hematocrit 46.5 % (41.0-53.0); Hemoglobin 15.8 g/dL (13.5-17.5); Mean Corpuscular Hemoglobin 31.0 pg (28.0-32.0); Mean Corpuscular Volume 91.4 fL (80.0-100.0); Nucleated Red Blood Cells % 0.0 %
[2025-05-01 07:05] LABS: Alanine Aminotransferase 24 U/L (7-40); Alkaline Phosphatase 60 U/L (46-116); Anion Gap 7 (5-15); BUN/Creatinine Ratio 23.5 (10.0-20.0); Blood Urea Nitrogen 16 mg/dL (9-23); Calcium 9.2 mg/dL (8.7-10.4); Carbon Dioxide 25 mmol/L (20-31); Chloride 107 mmol/L (98-107); Potassium 4.3 mmol/L (3.5-5.1); Sodium 139 mmol/L (136-145); Total Protein 6.7 g/dL (5.7-8.2)
[2025-05-01 07:06] LABS: Glucose 134 mg/dL (74-106)
[2025-05-01 07:07] LABS: Albumin 3.9 g/dL (3.2-4.8); Bilirubin, Total 0.4 mg/dL (0.2-1.0)
--- NOTE | 2025-05-01 10:29 | DVHSR ---
APPROVED REPORT EXAM: Two-dimensional and M-mode echocardiogram with Doppler and color Doppler. Blood Pressure: 108/70 mmHg INDICATION Chest Pain RISK FACTORS Height: 5'5", Weight: 138 DIMENSIONS LVDd 4.6 (3.8-5.7cm) LA (2D) 3.2 (1.9-4.0cm) Aortic Root 3.7 (2.0-3.7cm) LVDs 2.9 (2.5-4.0cm) LA (MM) (1.9-4.0cm) Aortic Cusp Exc 1.6 (1.5-2.0cm) EF (%) 65.0 (55-70%) Rt. Atrium 3.2 (1.9-4.0cm) Asc. Aorta cm IVSd 0.8 (0.7-1.1cm) RV (D) 3.5 (1.8-2.4cm) PWd 0.8 (0.7-1.1cm) Mitral Valve Mitral Mitral Stenosis E wave 0.73m/s MV Mean GR. mmHg A wave 0.69m/s MV Peak GR. mmHg E/A ratio 1.1 2D MVA cm2 DECEL Time 281ms PRESS 1/2 Time ms Aortic Valve Aortic Valve Aortic Stenosis V1 1.26m/s AO Mean GR. 5mmHg V2 1.54m/s AO Peak GR. 9mmHg LVOT Diameter 1.8 (1.8-2.4cm) Doppler SEYMOUR 2.08cm2 Pulmonic Valve V2 1.26m/s Tricuspid Valve TR Velocity 2.84m/s RVSP 35mmHg Conclusion lvef 65% normal rv function normal atria no severe valve abnormalities noted
--- NOTE | 2025-05-01 13:32 | DVHPN2 ---
Changes from previous H/P or p: No Changes Eyes: No Pain, No Vision change, No Conjunctivae inflammation, No Eyelid inflammation, No Other, No Redness ENT: No Ear pain, No Ear discharge, No Nose pain, No Nose discharge, No Nose congestion, No Mouth pain, No Mouth swelling, No Throat pain, No Throat swelling, No Other Cardiovascular: Chest Pain; No Palpitations, No Orthopnea, No Paroxysmal Noc. Dyspnea, No Edema, No Lt Headedness, No Other Respiratory: No Cough, No Dry; Shortness of breath; No SOB with excertion, No Wheezing, No Hemoptysis, No Pleuritic Pain, No Sputum; Other (SOB at rest) Gastrointestinal: No Nausea, No Vomiting, No Abdominal Pain, No Diarrhea, No Constipation, No Melena, No Hematochezia, No Other Genitourinary: No Dysuria, No Frequency, No Incontinence, No Hematuria, No Retention, No Other Musculoskeletal: No other, No neck pain, No shoulder pain, No arm pain, No back pain, No hand pain, No leg pain, No foot pain Skin: No Rash, No Lesions, No Jaundice, No Bruising, No Other Objective Vitals Vital Signs Date Time Temp Pulse Resp B/P (MAP) Pulse Ox O2 Delivery O2 Flow Rate FiO2 05/01/25 09:00 97.7 84 18 117/84 (95) 94 97.7 04/30/25 20:00 Nasal Cannula* 2 28 Intake/Output Intake and Output 05/01/25 07:00 Intake Total 850 ml Balance 850 ml Intake Oral 850 ml # Voids 5 Medications Current Medications Medications Dose Ordered Sig/Tosha Route Start Time Stop Time Status Last Admin Dose Admin Methylprednisolone Sodium Succinate 40 mg BID IV 04/30/25 10:00 05/01/25 09:39 40 MG Famotidine 20 mg DAILY IV 04/30/25 10:00 05/01/25 09:39 20 MG Sodium Chloride 10 ml Q8HR IV 04/30/25 06:00 05/01/25 05:36 10 ML Acetaminophen/ Hydrocodone Bitart 1 tab Q4HP PRN PO 04/30/25 02:30 04/30/25 20:16 1 TAB Ondansetron HCl 4 mg Q4HP PRN IV 04/30/25 02:30 Docusate Sodium 100 mg BIDPRN PRN PO 04/30/25 02:30 Acetaminophen 650 mg Q6HP PRN PO 04/30/25 02:30 Nitroglycerin 0.4 mg Q5MINP PRN SL 04/30/25 02:45 Morphine Sulfate 2 mg Q30M PRN IV 04/30/25 02:45 Nicotine 1 patch DAILY TD 04/30/25 21:00 05/01/25 09:41 1 PATCH Laboratory Results Laboratory Tests 05/01/25 06:12 Chemistry Test 05/01/25 06:12 Albumin 3.9 g/dL (3.2-4.8) Calcium Level 9.2 mg/dL (8.7-10.4) Total Protein 6.7 g/dL (5.7-8.2) LFT Test 05/01/25 06:12 Alanine Aminotransferase (ALT) 24 U/L (7-40) Alkaline Phosphatase 60 U/L (46-116) Aspartate Amino Transferase (AST) 23 U/L (13-40) Total Bilirubin 0.4 mg/dL (0.2-1.0) Urinalysis Test 04/30/25 17:47 Urine Color Light-yellow (Yellow) Urine Clarity Clear (Clear) Urine pH 5.5 (5.0-9.0) Urine Specific [place] 1.022 (1.001-1.035) Urine Protein Negative (Negative) Urine Ketones Negative (Negative) Urine Blood Trace /uL (Negative) H Urine Nitrite Negative (Negative) Urine Bilirubin Negative (Negative) Urine Urobilinogen Normal mg/dL (Negative) Urine Leukocyte Esterase Negative /uL (Negative) Urine RBC <1 /hpf (0 - 3) Urine Microscopic WBC < 1 /HPF (0-3) Urine Squamous Epithelial Cells None seen /hpf (<5) Urine Bacteria None seen /hpf (None Seen) Urine Mucus Few (None Seen) Urine Glucose Trace mg/dL (Normal) Assessment/Plan Assessment/Plan # Acute respiratory failure, rule out COPD, on 2 L oxygen # acute chest pain,rule out PE # rule out aortic dissection # acute chest pain, rule out ACS # ruled out COPD exacerbation # rule out GERD - tropes x3 negative - BNP 19.04 - D-dimer 0.38 - EKG acute changes - COVID and influenza negative - echo reviewed and normal: lvef 65% normal rv function normal atria no severe valve abnormalities noted - chest x-ray showed no acute changes - MRSA screen ordered, pending PUD prophylaxis: Famotidine 20 mg daily IV DVT prophylaxis: Goals of care: Full code, discussed for >23 minutes Continue current management. Will add IV antibiotic Rocephin Explain to son and patient regarding to COPD exacerbation. Plan discussed with: Patient, Son Date of Service: May 01, 2025 Billing Provider: CHRIS RAUSCH MD Common Visit Codes: [id number] INP/OBS CARE(HIGH) CHRIS RAUSCH MD May 01, 2025 13:32
[2025-05-02 01:00] VITALS: BP 117/65; PULSE 62; RESP 18; TEMP 98.1; O2SAT 97
[2025-05-02 05:00] VITALS: BP 111/75; PULSE 63; RESP 18; TEMP 98.3; O2SAT 97
[2025-05-02 07:58] LABS: Hematocrit 48.6 % (41.0-53.0); Hemoglobin 16.2 g/dL (13.5-17.5); Mean Corpuscular Hemoglobin 30.5 pg (28.0-32.0); Mean Corpuscular Volume 91.6 fL (80.0-100.0); Nucleated Red Blood Cells % 0.0 %
[2025-05-02 08:00] VITALS: PULSE 62
[2025-05-02 08:04] LABS: Potassium 4.2 mmol/L (3.5-5.1); Sodium 141 mmol/L (136-145)
[2025-05-02 08:05] LABS: Anion Gap 7 (5-15); Calcium 9.2 mg/dL (8.7-10.4); Carbon Dioxide 26 mmol/L (20-31); Chloride 108 mmol/L (98-107)
[2025-05-02 08:10] LABS: BUN/Creatinine Ratio 25.0 (10.0-20.0); Blood Urea Nitrogen 19 mg/dL (9-23); Glucose 130 mg/dL (74-106)
[2025-05-02 09:00] VITALS: BP 102/60; PULSE 57; RESP 18; TEMP 97.4; O2SAT 96
[2025-05-02 12:53] VITALS: BP 113/80; PULSE 60; RESP 18; TEMP 98; O2SAT 97
[2025-05-02] MEDS ORDERED: BUDE1AER15 IN (13:03)
[2025-05-02] MEDS ORDERED: AZIT-185 PO (13:03)
[2025-05-02] MEDS ORDERED: UMEC1INH IN (13:03)
[2025-05-02] MEDS ORDERED: PRED20TA2 PO (13:03)
[2025-05-02] MEDS ORDERED: ALBUAER3 IN (13:03)
[2025-05-02] MEDS ORDERED: NIC21P TD (13:25)
--- NOTE | 2025-05-02 17:13 | DVHDSRES ---
Discharge Summary Date of Admission Resident Creating Document: CARO BROWER RESIDENT Apr 30, 2025 at 02:45 Date of Discharge: May 02, 2025 Admitting Diagnosis Acute respiratory distress Labs/Diagnostic Data: Laboratory Results Test 05/02/25 07:43 05/01/25 06:12 04/30/25 17:47 04/30/25 15:35 White Blood Count 17.0 10^3/uL (4.4-10.8) Red Blood Count 5.31 10^6/uL (4.5-5.90) Hemoglobin 16.2 g/dL (13.5-17.5) Hematocrit 48.6 % (41.0-53.0) Mean Corpuscular Volume 91.6 fL (80.0-100.0) Mean Corpuscular Hemoglobin 30.5 pg (28.0-32.0) Mean Corpuscular Hemoglobin Concent 33.3 g/dL (32.0-36.0) Red Cell Distribution Width 14.1 % (11.8-14.3) Platelet Count 315 10^3/uL (140-450) Mean Platelet Volume 8.2 fL (6.9-10.8) Neutrophils (%) (Auto) 88.7 % (37.0-80.0) Lymphocytes (%) (Auto) 8.3 % (10.0-50.0) Monocytes (%) (Auto) 2.5 % (0.0-12.0) Eosinophils (%) (Auto) 0.0 % (0.0-7.0) Basophils (%) (Auto) 0.5 % (0.0-2.0) Neutrophils # (Auto) 15.1 10 ^3/uL (1.6-8.6) Lymphocytes # (Auto) 1.4 10 ^3/uL (0.4-5.4) Monocytes # (Auto) 0.4 10 ^3/uL (0-1.3) Eosinophils # (Auto) 0 10 ^3/uL (0-0.8) Basophils # (Auto) 0.1 10 ^3/uL (0-0.2) Nucleated Red Blood Cells 0.0 % Sodium Level 141 mmol/L (136-145) Potassium Level 4.2 mmol/L (3.5-5.1) Chloride Level 108 mmol/L (98-107) Carbon Dioxide Level 26 mmol/L (20-31) Anion Gap 7 (5-15) Blood Urea Nitrogen 19 mg/dL (9-23) Creatinine 0.76 mg/dL (0.700-1.30) Glomerular Filtration Rate Calc 106 mL/min (>90) BUN/Creatinine Ratio 25.0 (10.0-20.0) Serum Glucose 130 mg/dL (74-106) Calcium Level 9.2 mg/dL (8.7-10.4) Total Bilirubin 0.4 mg/dL (0.2-1.0) Aspartate Amino Transferase (AST) 23 U/L (13-40) Alanine Aminotransferase (ALT) 24 U/L (7-40) Alkaline Phosphatase 60 U/L (46-116) Total Protein 6.7 g/dL (5.7-8.2) Albumin 3.9 g/dL (3.2-4.8) Urine Color Light-yellow (Yellow) Urine Clarity Clear (Clear) Urine pH 5.5 (5.0-9.0) Urine Specific [place] 1.022 (1.001-1.035) Urine Protein Negative (Negative) Urine Ketones Negative (Negative) Urine Blood Trace /uL (Negative) Urine Nitrite Negative (Negative) Urine Bilirubin Negative (Negative) Urine Urobilinogen Normal mg/dL (Negative) Urine Leukocyte Esterase Negative /uL (Negative) Urine RBC <1 /hpf (0 - 3) Urine Microscopic WBC < 1 /HPF (0-3) Urine Squamous Epithelial Cells None seen /hpf (<5) Urine Bacteria None seen /hpf (None Seen) Urine Mucus Few (None Seen) Urine Glucose Trace mg/dL (Normal) Urine Opiates Screen Neg (NEGATIVE) Urine Fentanyl Screen Neg (NEGATIVE) Urine Barbiturates Screen Neg (NEGATIVE) Urine Phencyclidine Screen Neg (NEGATIVE) Urine Amphetamines Screen Neg (NEGATIVE) Urine Benzodiazepines Screen Neg (NEGATIVE) Urine Cocaine Screen Neg (NEGATIVE) Urine Cannabinoids Screen Neg (NEGATIVE) Influenza Type A Antigen Negative (Negative) Influenza Type B Antigen Negative (Negative) SARS-CoV-2 Antigen (Rapid) Negative (NEGATIVE) Test 04/30/25 09:39 04/29/25 23:12 04/29/25 23:07 04/29/25 22:00 D-Dimer, Quantitative 0.38 mg/L FEU (0.0-0.49) Blood Gas Specimen Type Venous Blood Gas Sample Site Vbg - n/a Blood Gas Patient Temperature 37.0 Arterial Blood Date Drawn [id number] Declan Test N/a Venous Blood pH 7.395 (7.320-7.430) Venous Blood pCO2 at Patient Temp 34.8 mmHg (38.0-54.0) Venous Blood pO2 at Patient Temp 65.8 mmHg (23.0-48.0) Venous Blood HCO3 20.8 mmol/L (22.0-29.0) Venous Blood Base Excess -3.3 mmol/L (-2.0-3.0) Blood Gas Liter Flow 2.00 Blood Gas Modality Nasal cannula FiO2 % 28.0 Troponin I High Sensitivity < 3 ng/L (</=54) Differential Total Cells Counted 100.0 (100) Neutrophils % (Manual) 40 (37.0-80.0) Band Neutrophils % (Manual) 0 Lymphocytes % (Manual) 57 (10.0-50.0) Monocytes % (Manual) 3 (0-12) Eosinophils % (Manual) 0 (0-7) Basophils % (Manual) 0 (0.0-2.0) Metamyelocytes % (manual) 0 Myelocytes % (Manual) 0 Promyelocytes % (Manual) 0 Blast Cells % (Manual) 0 Reactive Lymphocytes 0 Platelet Estimate Adequate Prothrombin Time 9.8 sec (9.3-11.8) Prothrombin Time INR 0.92 (0.9-1.15) Activated Partial Thromboplast Time 26.4 SEC (24.5-34.5) B-Type Natriuretic Peptide 19.04 pg/mL (0-100) Other Laboratory Tests 05/02/25 07:43 Brief Hx & Hospital Course: [place] Juarez 55-year-old male with no significant past medical history who presented to the ED with the complaint of shortness of breath. The patient mentioned he started having shortness of breath the day before admission which kept getting progressively worse, when he had significant difficulty breathing and was gasping for air. He also experienced tightness in the chest and generalized weakness along with it. The patient mentioned he has been having increased shortness of breath on lying down and has to sometimes sit up from lying down position to get some air. On evaluation, patient mentioned he is having sharp pain radiating from the back to the front of the chest, rated as 8/10 in intensity, exacerbated with exertion. He denied any recent fever, chills or sick contacts. Tropes x3 were negative, BNP was 19.04. D-dimer level was checked to rule out PE, D-dimer was 0.38. Echo showed left ventricular ejection fraction of 65% with normal valvular function. Repeated chest x-ray showed changes possibly due to emphysema and COPD. The patient showed considerable improvement in the shortness of breaths with steroids and desaturated to well without oxygen support on room air. The patient was discharged home in a stable condition on azithromycin p.o. b.i.d. for 3 days, steroids for 3 days, nicotine patches and nebulizers. A intensive care unit nurse consult was placed for arranging PCP for the patient. All medications and recommendations were thoroughly explained to him and he demonstrated understanding of the same. He was recommended to follow up in discharge Clinic in 1 week, with PCP once PCP established and get pulmonology referral for PFTs. Past medical history: Denies Past surgical history: Denies Social & Personal history: Lives at home with family Smokin pack-year smoking history Alcohol: Occasional alcohol consumption Drugs: Denies Allergies: No known allergies General Appearance: Cooperative. Well developed. Well nourished. NAD Head Exam: Normal inspection Neck Exam: Normal inspection. Non-tender. Normal alignment Pulmonary/Respiratory: Chest non-tender. Clear bilateral breath sounds, no crackles, no wheezing. Cardiovascular/Chest: Regular rate and rhythm. No murmurs. No JVD. Peripheral Pulses: 2+ Radial (R). 2+ Radial (L). 2+ Pedal (R). 2+ Pedal (L) Abdominal Exam: Normal bowel sounds. Soft. normal abdomen, no visible veins, Nontender. No hepatospenomegaly. No masses Ankle Exam: Negative ankle edema Lower extremities: Negative lower extremity edema Neuro/Mental Status: A&O x4. Coherent. Thoughts/Psych: Normal thought pattern. Appropriate mood and affect. Good judgement and insight Skin Exam: Normal inspection. Normal color. Warm. Dry Operations or Procedures 1.PROCEDURE(s): CXRP - CHEST PORTABLE REASON: SOB ORDER NUMBER(s): [id number], ACCESSION NUMBER(s): [id number] CHEST RADIOGRAPH Indication: SOB Technique: Single frontal view of the chest was obtained COMPARISON: None FINDINGS: Lungs and pleural spaces are clear. Cardiac silhouette and vikki are within normal limits. Bones and soft tissues demonstrate no significant abnormality. IMPRESSION: No acute disease. 2.PROCEDURE(s): CXR1 - CHEST XRAY 1 VIEW REASON: shortness of breath ORDER NUMBER(s): [id number], ACCESSION NUMBER(s): [id number] CHEST RADIOGRAPH Indication: shortness of breath Technique: Single frontal view of the chest was obtained COMPARISON: XY CHEST PORTABLE on DOS: 04/30/25 FINDINGS: Lines and Tubes: None Lungs: Clear Pleura: No effusion. No pneumothorax. Cardiomediastinal contours: Unremarkable Bones: Unremarkable IMPRESSION: 1. No acute disease. 3.PROCEDURE(s): ECIDC - ECHO 2D MODE CARDIAC DOP REASON: chest pain ORDER NUMBER(s): [id number], ACCESSION NUMBER(s): [id number] APPROVED REPORT EXAM: Two-dimensional and M-mode echocardiogram with Doppler and color Doppler. Blood Pressure: 108/70 mmHg INDICATION Chest Pain RISK FACTORS Height: 5'5", Weight: 138 DIMENSIONS LVDd 4.6 (3.8-5.7cm) LA (2D) 3.2 (1.9-4.0cm) Aortic Root 3.7 (2.0- 3.7cm) LVDs 2.9 (2.5-4.0cm) LA (MM) (1.9-4.0cm) Aortic Cusp Exc 1.6 (1.5- 2.0cm) EF (%) 65.0 (55-70%) Rt. Atrium 3.2 (1.9-4.0cm) Asc. Aorta cm IVSd 0.8 (0.7-1.1cm) RV (D) 3.5 (1.8-2.4cm) PWd 0.8 (0.7-1.1cm) Mitral Valve Mitral Mitral Stenosis E wave 0.73m/s MV Mean GR. mmHg A wave 0.69m/s MV Peak GR. mmHg E/A ratio 1.1 2D MVA cm2 DECEL Time 281ms PRESS 1/2 Time ms Aortic Valve Aortic Valve Aortic Stenosis V1 1.26m/s AO Mean GR. 5mmHg V2 1.54m/s AO Peak GR. 9mmHg LVOT Diameter 1.8 (1.8-2.4cm) Doppler SEYMOUR 2.08cm2 Pulmonic Valve V2 1.26m/s Tricuspid Valve TR Velocity 2.84m/s RVSP 35mmHg Conclusion lvef 65% normal rv function normal atria no severe valve abnormalities noted Condition at Discharge: Fair Final Diagnosis/Problems List Acute respiratory failure, likely due to COPD acute chest pain,ruled out PE Acute chest pain, ruled out ACS ruled out aortic dissection ruled out GERD Discharge Disposition: Home Discharge Instruct/Medications Diet: Regular Activity: No Restrictions, As Tolerated Follow Up/Referral: Follow up in [place] clinic Follow up with PCP Medications: As per EMR Scheduled Azithromycin (Zithromax Tablet), 250 MG PO BID Budesonide-Formoterol Fumarate (Breyna 80-4.5 Mcg/Act), 1 AER IN DAILY Nicotine (Nicoderm 21MG/24HR), 1 PATCH TD DAILY Prednisone (Prednisone), 40 MG PO DAILY Umeclidinium Campbell (Incruse Ellipta), 62.5 MCG IN DAILY Scheduled PRN Albuterol Sulfate (Ventolin Mdi), 90 MCG IN TID PRN Discharge Statement: "Patient was advised to return to the ER or call 911 if any headaches, dizziness, shortness of breath, chest pain, abdominal pain, bleeding, fevers, or worsening of medical condition. Patient was counseled about treatment plan, medications, possible side effects, patientverbalized understanding. All questions were answered to the best of my ability. This discharge took greater then 30 minutes in planning, reviewing documentation, counseling the patient, and discussing with other team members." ASSESSMENT ASSESSMENT Assessment Acute respiratory failure, likely due to COPD Date of Service: May 02, 2025 Billing Provider: CHRIS RAUSCH MD Common Visit Codes: [id number] DISCH DAY >30min CARO BROWER RESIDENT May 02, 2025 17:13
== END 2025-05-02 16:00 | disposition home or self-care (01) | DRG 140 ==
LOC: EDBD 21:54 → ER 21:54 → OVERFLOW 04-30 02:45 → TELE-WESTW 04-30 04:05
PROVIDERS: ADMIT Nurse Practitioner Family; ATTEND Nurse Practitioner Family
DX: J44.9 Chronic obstructive pulmonary disease, unspecified (principal); J96.01 Acute respiratory failure with hypoxia; R07.89 Other chest pain; Z20.822 Contact with and (suspected) exposure to COVID-19
CPT/HCPCS: 36415; 36600; 71045; 80048; 80053; 80307; 81001; 82805; 83880; 84484; 85007; 85025; 85027; 85379; 85610; 85730; 87081; 87426; 87804; 93005; 93306; 94640; 96365; 96375; G0378; J3490